=== PATIENT | female | born 1960 | race Caucasian/White ===

== ENCOUNTER 2023-09-28 09:56 | Day surgery (SDC) | payer BC, SELFPAY ==
[2023-09-28] VITALS (15 sets, daily range): BP systolic 106–139; BP diastolic 68–111; PULSE 67–81; RESP 14–20; TEMP 36–36.8; O2SAT 91–99; BMI 35.4
--- OUTSIDE RECORDS SUMMARY | 2023-09-28 10:02 | XMS_ITS | Clinical Summary ---
Author Organization [facility] Address [place], [place] [address] Care Team Providers Care Auto Research Engineer Name Role Phone Lin Morel MD Primary Care Provider [phone] Radha Huerta SAMPLE TAKER OPERATOR Unavailable [phone] Allergies Active Allergy Reactions Criticality Noted Date Comments Amoxicillin-Pot Clavulanate Diarrhea 10/31/19 17 July 2022. Medications Medication Sig Dispensed Refills Start Date End Date Status valACYclovir (VALTREX) 500 mg tabletIndications:G enital herpes simplex, unspecified site TAKE 1 TABLET BY MOUTH EVERY DAY FOR PREVENTION AND 1 TABLET TWICE DAILY FOR 5 DAYS FOR OUTBREAKS 90 Tablet 3 03/20/20 23 Active SUMAtriptan (IMITREX) 6 mg/0.5 mL SUBCUTANEOUS penIndications:Flight Engineer Performance Qualified aishwarya migraine without aura without status migrainosus, not intractable Inject 0.5 mL (6 mg) subcutaneous 2 times daily if needed for Migraine. Give at minimum 2hrs apart. Max Dose: 12mg per 24hrs. 6 mL 05/07/19 24 Active SUMAtriptan (IMITREX) 100 mg tabletIndications:C hronic migraine without aura without status migrainosus, not intractable Take 1 Tablet (100 mg) by mouth 2 times daily if needed for Migraine. Give at minimum 2hrs apart. Max Dose: 200mg per 24hrs. 9 Tablet 05/07/19 24 Active ketoconazole 2% topical (NIZORAL) creamIndications:Ti rosa pedis of both feet Apply topically to affected area(s) two times daily. 60 g 06/12/19 24 Active oxyCODONE (ROXICODONE) 5 mg immediate release tabletIndications:P ain of midfoot, right Take 1 Tablet (5 mg) by mouth 2 times daily if needed for Pain. 15 Tablet 06/18/19 24 Active pantoprazole (PROTONIX) 40 mg delayed-release tabletIndications:G astroesophageal reflux disease without esophagitis TAKE 1 TABLET(40 MG) BY MOUTH EVERY DAY BEFORE A MEAL 90 Tablet 2 06/20/19 24 Active betamethasone, augmented dipropianate 0.05% (DIPROLENE AF) 0.05 % cream APPLY TO BILATERAL FOREARMS TWICE DAILY FOR 2-3 WEEKS THEN NEEDED 07/20/19 24 Active triamcinolone (ARISTOCORT; KENALOG) 0.1 % creamIndications:De rmatitis Apply topically to affected area(s) two times daily. To rash around buttocks. 80 g 1 08/04/19 24 Active tacrolimus 0.1% (PROTOPIC) 0.1 % ointment 08/03/19 24 Active venlafaxine (EFFEXOR XR) 75 mg cp24 Extended-Release capsuleIndications: Generalized anxiety disorder Take 1 Capsule (75 mg) by mouth once daily with a meal. 90 Capsule 1 09/15/19 24 Active venlafaxine (EFFEXOR XR) 150 mg Extended-Release capsuleIndications: Generalized anxiety disorder Take 1 Capsule (150 mg) by mouth once daily with a meal. Take with 75 mg capsule for total dose 225 mg daily. 90 Capsule 1 09/15/19 24 Active meloxicam 15 mg tabletIndications:P ain of midfoot, right Take 1 Tablet (15 mg) by mouth once daily. 90 Tablet 1 09/22/19 24 Active tiZANidine (ZANAFLEX) 2 mg tabletIndications:T ension headache TAKE 1 TABLET(2 MG) BY MOUTH AT BEDTIME 90 Tablet 09/24/19 24 Active fluticasone (50 mcg per actuation) nasal solution (FLONASE)Indication s:Allergic rhinitis, unspecified seasonality, unspecified trigger SHAKE LIQUID AND USE 2 SPRAYS IN EACH NOSTRIL EVERY DAY 48 g 3 09/25/19 24 Active albuterol HFA (PRO-AIR; VENTOLIN; PROVENTIL) 90 mcg/actuation inhalerIndications: SOB (shortness of breath) Inhale 1-2 Puffs by mouth every 4 hours if needed for Shortness of Breath 1st choice. 1 Each 3 03/01/20 22 024 Discontinued(*P atient states no longer taking) fluticasone (50 mcg per actuation) nasal solution (FLONASE)Indication s:Allergic rhinitis, unspecified seasonality, unspecified trigger Inhale 2 Sprays to both nostrils once daily. 48 g 3 09/25/19 23 024 Discontinued albuterol (PROVENTIL) 0.083 % neb solutionIndications :Bronchitis Inhale 3 mL (2.5 mg) via a nebulizer every 6 hours if needed for Wheezing or Cough. 90 mL 03/07/20 23 024 Discontinued(*P atient states no longer taking) venlafaxine (EFFEXOR XR) 75 mg cp24 Extended-Release capsuleIndications: Generalized anxiety disorder Take 1 Capsule (75 mg) by mouth once daily with a meal. 90 Capsule 1 03/24/20 23 024 Discontinued(Re order (E-cancel not sent)) fluticasone furoate-vilanteroL (BREO ELLIPTA) 100-25 mcg/dose inhalerIndications: Mild intermittent asthma without complication Inhale 1 Puff by mouth once daily. 60 Each 11 05/11/19 24 024 Discontinued(*P atient states no longer taking) venlafaxine (EFFEXOR XR) 150 mg Extended-Release capsuleIndications: SMITA (generalized anxiety disorder),Post-conc ussion headache TAKE 1 CAPSULE(150 MG) BY MOUTH EVERY DAY WITH THE EVENING MEAL 90 Capsule 05/19/19 24 024 Discontinued tiZANidine (ZANAFLEX) 2 mg tabletIndications:T ension headache Take 1 Tablet (2 mg) by mouth at bedtime. 90 Tablet 06/05/19 24 024 Discontinued durable medical equipment (DME)Indications:Ch ronic pain of left thumb,Degenerative arthritis of thumb, left,Arthritis of carpometacarpal (CMC) joint of left thumb CMC joint brace, Comfort Cool thumb, left, medium 06/12/19 24 024 Discontinued(*M ed complete/Regime n complete/Level of care change) meloxicam 15 mg tabletIndications:P ain of midfoot, right Take 1 Tablet (15 mg) by mouth once daily. 30 Tablet 08/20/19 24 024 Discontinued(Re order (E-cancel not sent)) venlafaxine (EFFEXOR XR) 150 mg Extended-Release capsuleIndications: SMITA (generalized anxiety disorder),Post-conc ussion headache TAKE 1 CAPSULE(150 MG) BY MOUTH EVERY DAY WITH THE EVENING MEAL 30 Capsule 08/31/19 24 024 Discontinued(Re order (E-cancel not sent)) Active Problems Problem Noted Date Diagnosed Date Post-concussion headache 08/23/2021 Depression, major 12/21/2012 Back pain 02/10/2008 Genital herpes, unspecified 12/18/2006 Post-traumatic osteoarthritis of knee 12/18/2006 Allergic rhinitis, cause unspecified 05/26/2006 Migraine Resolved Problems Problem Noted Date Diagnosed Date Resolved Date Pap smear for cervical cancer screening 08/25/2022 10/30/2022 Overview: 08/2022 NIL/HPV negative Plan: Pap/HPV due in 5 years Vitamin D deficiency 12/06/2012 017 Encounter for screening colonoscopy 10/21/2021 Encounters Date Type Department Care Team Description 09/28/[address] [phone] Shayna Wadsworth MD Refill Request (Tizanidine) 09/26/2023 Travel 09/24/[address] [phone] Lin Morel MD Refill Request (Fluticasone (50 Mcg Per Actuation) Nasal) 09/23/[address] [address] Shayna Wadsworth MD Refill Request (Tizanidine) 09/23/[address] [phone] Lin Morel MD Medication Management 09/20/[address] [place] [address] Lin Morel MD Refill Request (meloxicam 15 mg tablet) 09/18/[address] [place] [address] Lin Morel MD Medication Management (Questions Regarding Medications Before 09/28 Surgery) 09/18/[address] [place] [address] Lin Morel MD Follow Up 09/17/[address] [place] [address] Lin Morel MD Medication Management 09/15/2023 Orders Only [address] [place] [address] Lin Morel MD 1 scan: (1-Ord) 09/14/2023 09/15/2023 Telephone [facility] [address] [place] [address] Omid Barbosa DPM Questions 09/14/2023 3:40 PM CDT Preop Visit [address] [place] [address] Lin Morel MD Preoperative Exam (Right foot torn tendon, 09/28/23. Dr. Barbosa) 09/14/[address] [place] [address] Lin Morel MD Questions (regarding after care summary) 09/14/2023 Travel 08/31/[address] [place] [address] Shayna Wadsworth MD Refill Request (Tizanidine) 08/30/[address] [address] Lin Morel MD Refill Request (Venlafaxine) 08/19/2023 3:30 PM CDT Office Visit [facility] [address] [place] [address] Omid Barbosa DPDeclan Follow Up (Left foot) 08/19/2023 Travel 08/19/[address] [phone] Moi Scott MD Refill Request (Meloxicam 15mg) 08/19/[address] [address] Lin Morel MD Questions 08/12/[address] [address] Lin Morel MD Referral (Insurance Referral) 08/12/[address] [address] Lin Morel MD Error-please disregard 08/11/2023 Orders Only [facility] [place] [address] [place] [phone] Gerald Paris MD <No scans attached> 08/05/2023 2:30 PM CDT Office Visit [facility] [address] [place] [address] Omid Barbosa DPM Follow Up (MRI review and final surgical discussion, DOS 09/28/23) 08/05/2023 9:30 AM CDT [facility] [address] [place] [address] Gerald Paris MD Finger Pain/problem (Left thumb pain) 08/05/2023 Telephone [facility] [address] [address] [place] [address] Gerald Paris MD Questions (CALL BACK ) 08/05/[address] [address] Lin Morel MD Health Maintenance Update (UPDATE) 08/05/2023 Travel 08/04/[address] [address] Lin Morel MD Medication Management (: triamcinolone (ARISTOCORT; KENALOG) 0.1 % cream) 08/01/[address] [address] Lin Morel MD Refill Request (triamcinolone (ARISTOCORT; KENALOG) 0.1 % cream) 07/31/[address] [address] Lin Morel MD Refill Request (Triamcinolone) 07/23/2023 9:10 AM CDT Office Visit [address] [phone] Moi Scott MD Concerns (Left foot is tingly. Sx started about a month ago. ) 07/23/2023 Telephone [facility] [address] [place] [address] Omid Barbosa DPM surgery question (How soon may I return to work) 07/23/2023 Travel 07/23/[address] [address] Lorin Huerta PA Refill Request (Meloxicam) 07/20/2023 7:15 AM CDT Ancillary Procedure [facility] [address] [place] [address] 07/20/2023 Telephone [facility] [address] [place] [address] Omid Barbosa DPM Questions (MRI Results, surgery?) 07/20/2023 Travel 07/17/2023 8:30 AM CDT Office Visit [facility] [place] [address] [phone] Mohsen Joseph PA Hand Pain/problem (f/u left thumb) 07/17/2023 Travel 07/07/2023 4:00 PM CDT Office Visit [facility] [address] [address] [place] [address] Silva Velasco MD Concerns (diet for arthritis ) 07/07/2023 2:45 PM CDT Office Visit [facility] [address] [place] [address] Omid Barbosa DPM Consult (Right foot pain) 07/07/2023 Travel 06/28/2023 Telephone [facility] [address] [place] [address] Lin Morel MD Questions from Last 3 Months Immunizations Name Administration Dates Next Due COVID-19 vaccine (Moderna 100mcg/0.5mL) PF, MDV 10/31/2021,03/06/2021,07/26/2020,2020 Hepatitis B (Adult) 04/28/2000,06/27/1999,1999 Influenza Virus, Unspecified 02/03/2017 Influenza, IIV3 (Age >=3 years) 01/25/2017,02/18 Influenza, IIV4 01/08/2021,01/17/2020,02/03/2013 Influenza, IIV4 (=>6mos) MDV 02/03/2019 Influenza, Injectable, Mdck, Quadrivalent, W/preservative 01/27/2023,01/21/2022 Influenza,LAIV4 Live Intrana yossi (Flumist) 02/21/2014 Td (Age >=7 Years) 08/01/2004 Tdap 09/19/2016 Zoster (Shingrix-RZV, recombinant) 10/21/2021, Family History Medical History Relation Name Comments Hypertension Father Cancer-breast Maternal Aunt GI Disease Mother cholecystectomy Hypertension Mother Mastocytosis Mother DVT. Factor V L eiden/Systemic Mastocytosis Cancer-breast Sister 1 Lin Mancilla Cancer-breast Sister 2 Lesvia Relation Name Status Comments Brother Alive x2 Daughter Alive x1 Father Alive Maternal Aunt Maternal Grandfather Maternal Grandmother Mother Alive Paternal Grandfather Paternal Grandmother Sister 1 Lin Mancilla Alive x3 Sister 2 Lesvia Alive Social History Tobacco Use Types Packs/Day Years Used Date Smoking Tobacco: Never Smokeless Tobacco: Never Tobacco Cessation:Counseling Given: Yes Comments:never Alcohol Use Standard Drinks/Week Comments Not Currently 0 (1 standard drink = 0.6 oz pur e alcohol) rare PHQ-2 Answer Date Recorded PHQ-2 TOTAL SCORE 4 09/24/2022 Social Connections Answer Date Recorded Frequency of Communication with Friends and Fami ly Not on file 07/31/2023 Financial Resource Strain Answer Date R ecorded Difficulty of Paying Living Expenses 1 07/29/2022 Difficulty of Paying Living Expenses 2 07/29/2022 Food Insecurity Answer Date Recorded Worried About Running Out of Food in the Last Ye ar 1 07/29/2022 Transportation Needs Answer Date Record ed Lack of Transportation (Medical) 1 07/29/2022 Housing Stability Answer Date Recorded Unable to Pay for Housing in the Last Year 1 07/29/2022 Sex and Gender Information Value Date Recorded Sex Assigned at Not on file Gender Identity Not on file Sexual Orientation Not on file Obstetrics History Para Term AB IAB SAB Ectopic Multiple Livin g Live Births 2 1 1 1 1 1 1 Date Outcome GA Total Labor Labor/2nd/3rd Weight Sex Delivery Anes PTL Beverley A1 A5 Name Cl in Term Vag-Spont Helene ng IAB Feta l Brandi se Last Filed Vital Signs Vital Sign Reading Time Taken Comments Blood Pressure 134/80 09/14/2023 3:02 PM CDT Pulse 83 09/14/2023 3:02 PM CDT Temperature 36.9 ??C (98.5 ??F) 06/07/2023 3:12 PM CS T Respiratory Rate 20 06/07/2023 3:12 PM HOSTING ENGINEER Oxygen Saturation 94% 09/14/2023 3:02 PM CDT Inhaled Oxygen Concentration - - Weight 90.3 kg (199 lb) 09/14/2023 3:02 PM CDT Height 160 cm (5' 3) 07/07/2023 4:10 PM CDT Body Mass Index 35.25 07/07/2023 4:10 PM CDT Plan of Treatment Upcoming Encounters Date Type Department Care Team (Late st Contact Info) Description 09/28/2023 11:30 AM CDT Office Visit [facility] [address] [place] [address] Omid Barbosa DPM [address] [place] [address] Arrived 09/30/2023 10:30 AM CDT Office Visit [facility] [address] [place] [address] Omid Barbosa DPM [address] [place] [address] 10/05/2023 1:00 PM CDT Telemedicine [facility] [address] [place] [address] [address] [place] [address] 10/14/2023 10:30 AM CDT Office Visit [facility] [address] [place] [address] Omid Barbosa DPM [address] [place] [address] 10/19/2023 7:50 AM CDT Preop Visit [facility] [address] [place] [address] Lin Morel MD [address] [place] [address] 11/11/2023 10:30 AM CDT Office Visit [facility] [address] [place] [address] Omid Barbosa DPM [address] [facility] [address] 11/16/2023 Hospital Encounter Gerald Paris MD [address] [facility] [address] [place] [address] 11/16/2023 7:30 AM CDT Ancillary Procedure [facility] [address] [facility] [address] [place] [phone] 11/26/2023 9:30 AM CDT Office Visit [facility] [address] [facility] [address] [place] [phone] Leanna Garcia PA [address] [facility] [address] [place], [place] [phone] Scheduled Procedures Name Priority Associated Diagnoses Date/Ti me SURGICAL PROCEDURE (TYPE PROCEDURE DESCRIPTION BELOW) Arthritis of carpometacarpal (CMC) joint of left thumb Health Maintenance Due Date Last Done Comments Pneumococcal series for age 6-64 (1 of 2 - PCV) 1966 COVID-19 vaccine series (2022- season) 2022 10/31/2021, 03/06/2021, 07/26/2020, Additional history exists Depression screening for age 12+ 09/25/2023 09/24/2022, 10/23/2021, 10/22/2021, Additional history exists Mammogram for age 45-75 10/09/2023 10/09/19 23, 10/31/2021, 10/08/2020, Additional history exists Influenza for age 50-64 12/27/2023 01/28/20 23, 01/21/2022, 01/08/2021, Additional history exists BMI (ht and wt on same day) for age 18+ 07/06/2024 07/07/2023, 06/05/2023, 09/24/2022, Additional history exists Lipids for age 45-75 10/05/2025 10/05/2020, 11/14/2019, 11/01/2018, Additional history exists Tetanus booster 09/19/2026 09/19/2016, 08/01/2004 Pap test for age 21-65 09/25/2027 , 09/24/2022, 11/14/2019, Additional history exists Colonoscopy through age 75 10/02/203110/01, 11/07/2011, 11/07/2011 Tdap Completed 09/19/2016 Hepatitis C screening for ag e 18-79 Completed 11/14/2019 Zoster (shingles) series for age 50+ Completed 10/21/2021, 11/14/2019 HIV for age 15-65 Completed 06/05/2023 Procedures Procedure Name Priority Date/Time Associated Diagnosis Comments EKG 12 LEAD Routine 09/14/2023 12:00 AM CDT Pre-op evaluation MR ANKLE RIGHT WO Routine 07/20/2023 7:3 0 AM CDT Peroneal tendonitis, right ANTI HIV 1/2 Routine 06/05/2023 10:27 AM HOSTING ENGINEER Screening for HIV (human immunodeficiency virus) XR MAMMO EDEN BILAT SCREEN Routine 10/08/2022 8:40 AM CDT Visit for screening mammogram HPV THIN PREP Routine 09/24/2022 3:20 PM CDT Screening for malignant neoplasm of cervix COLONOSCOPY 10/01/2021 8:06 AM CDT LIPID PANEL W REFLEX MEASURED LDL Routine 10/05/2020 8:03 AM CDT Lipid screening ANTI HCV Routine 11/14/2019 4:19 PM CDT Need for hepatitis C screening test from Last 3 Months or Most Recently Relevant to Health Maintenance Results * EKG 12 LEAD (09/14/2023 12:00 AM CDT) Lin Morel MD EKG ORD * MR ANKLE RIGHT WO (07/20/2023 7:30 AM CDT) Anatomical Region Laterality Modality ANKLE R Magnetic Resonan ce 07/20/2023 12:3 8 PM CDT Impressions 07/20/2023 12:38 PM CDT 1. Moderate to advanced tendinopathy with partial-thickness tear of the peroneus longus tendon. The peroneus brevis tendon is intact. 2. 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 3. Mild degenerative changes in the midfoot. 4. Mild lateral subcutaneous edema. Dictated by Aubrey Sánchez MD @ 07/20/2023 12:38:32 PM (Electronically Signed) Narrative 07/20/2023 12:38 PM CDT For Patients: ??As a result of the Century Cures Act, medical imaging exams and procedure reports are released immediately into your electronic medical record. ??You may view this report before your referring provider. ??If you have questions, please contact your health care provider. EXAM: MRI OF THE RIGHT ANKLE, WITHOUT CONTRAST CLINICAL INDICATION: Peroneal tendinitis. Evaluate for peroneal tendon tear. COMPARISON PLAIN FILMS: 06/07/2023. COMPARISON CROSS-SECTIONAL IMAGING STUDIES: None. TECHNICAL: Axial, sagittal and coronal T1, PD, PD FS and STIR images. ?? FINDINGS: OSSEOUS STRUCTURES: No fracture, bone marrow contusion, stress change or marrow replacement process. JOINT SPACES: Moderate to full-thickness chondromalacia in the medial talar dome without adjacent subchondral cystic change. No ankle joint effusion synovitis. The subtalar joints are maintained. Mild degenerative changes in the talonavicular joint. Mild degenerative changes in the navicular cuneiform and TMT joints. LIGAMENTS: Syndesmotic Ligaments: The anterior and posterior syndesmotic ligaments are intact. Lateral Ligaments: Thinning of the anterior talofibular ligament consistent with chronic partial-thickness tear. The calcaneofibular ligament is intact. The posterior talofibular ligament is intact. Medial Ligaments: The superficial and deep components of the deltoid ligament complex are maintained. Spring Ligaments: The calcaneonavicular spring ligament complex is intact. TENDONS: Flexor Tendons: The posterior tibial, flexor digitorum longus and flexor hallucis longus tendons are intact. Extensor Tendons: The anterior extensor tendons are intact. Achilles Tendon: The Achilles tendon is intact without tendinosis, tear or peritendinitis changes. Peroneal Tendons: Thickening and low-level increased signal of the peroneus longus tendon consistent with moderate to advanced tendinopathy. Diffuse thinning of the peroneus longus tendon at and just distal to the retromalleolar groove consistent with partial-thickness tearing. In addition there is a partial-thickness longitudinal split tear proximal and distal to the area tendon thinning. The peroneus brevis tendon is intact. No tenosynovitis. No subluxation of the peroneal tendons. TARSAL TUNNEL: The soft tissues of the tarsal tunnel are normal without mass or fluid collection. ??No abnormality along the course of the medial or lateral plantar nerves. SINUS TARSI: The structures of the sinus tarsi appear normal. ??No disruption of the interosseous ligaments or significant effacement of fat. PLANTAR SOFT TISSUES: The plantar fascia is intact. ??There is no significant plantar calcaneal spur. ??No atrophy or edema of the abductor digiti minimi muscle belly. SOFT TISSUES: Mild lateral subcutaneous edema. Procedure Note Aubrey Sánchez MD - 07/20/2023 For Patients: As a result of the 21st Century Cures Act, medical imagingexams and procedure reports are released immediately into your electronicmedical record. You may view this report before your referring provider.If you have questions, please contact your health care provider. EXAM: MRI OF THE RIGHT ANKLE, WITHOUT CONTRAST CLINICAL INDICATION: Peroneal tendinitis. Evaluate for peroneal tendon tear. COMPARISON PLAIN FILMS: 06/07/2023. COMPARISON CROSS-SECTIONAL IMAGING STUDIES: None. TECHNICAL: Axial, sagittal and coronal T1, PD, PD FS and STIR images. FINDINGS: OSSEOUS STRUCTURES: No fracture, bone marrow contusion, stress change or marrow replacementprocess. JOINT SPACES: Moderate to full-thickness chondromalacia in the medialtalar dome without adjacent subchondral cystic change. No ankle jointeffusion synovitis. The subtalar joints are maintained. Mild degenerativechanges in the talonavicular joint. Mild degenerative changes in thenavicular cuneiform and TMT joints. LIGAMENTS: Syndesmotic Ligaments: The anterior and posterior syndesmotic ligamentsare intact. Lateral Ligaments: Thinning of the anterior talofibular ligamentconsistent with chronic partial-thickness tear. The calcaneofibularligament is intact. The posterior talofibular ligament is intact. Medial Ligaments: The superficial and deep components of the deltoidligament complex are maintained. Spring Ligaments: The calcaneonavicular spring ligament complex is intact. TENDONS: Flexor Tendons: The posterior tibial, flexor digitorum longus and flexorhallucis longus tendons are intact. Extensor Tendons: The anterior extensor tendons are intact. Achilles Tendon: The Achilles tendon is intact without tendinosis, tear orperitendinitis changes. Peroneal Tendons: Thickening and low-level increased signal of theperoneus longus tendon consistent with moderate to advanced tendinopathy.Diffuse thinning of the peroneus longus tendon at and just distal to theretromalleolar groove consistent with partial-thickness tearing. Inaddition there is a partial-thickness longitudinal split tear proximal anddistal to the area tendon thinning. The peroneus brevis tendon is intact.No tenosynovitis. No subluxation of the peroneal tendons. TARSAL TUNNEL: The soft tissues of the tarsal tunnel are normal without mass or fluidcollection. No abnormality along the course of the medial or lateralplantar nerves. SINUS TARSI: The structures of the sinus tarsi appear normal. No disruption of theinterosseous ligaments or significant effacement of fat. PLANTAR SOFT TISSUES: The plantar fascia is intact. There is no significant plantar calcanealspur. No atrophy or edema of the abductor digiti minimi muscle belly. SOFT TISSUES: Mild lateral subcutaneous edema. IMPRESSION: 1. Moderate to advanced tendinopathy with partial-thickness tear of theperoneus longus tendon. The peroneus brevis tendon is intact. 2. 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 3. Mild degenerative changes in the midfoot. 4. Mild lateral subcutaneous edema. Dictated by Aubrey Sánchez MD @ 07/20/2023 12:38:32 PM (Electronically Signed) Omid Barbosa DPDeclan MR * ANTI HIV 1/2 (06/05/2023 10:27 AM HOSTING ENGINEER) HIV-1/HIV-2 SCREEN Non-Reacti ve Non-Reacti ve 06/05/2023 9:31 PM HOSTING ENGINEER [facility] Comment:HIV-1 p24 and HIV-1/ HIV-2 Ab Not Detected. Blood BLOOD SPECIMEN / Unknown Venipuncture / Unknown 06/05/2023 10:27 AM HOSTING ENGINEER 06/05/2023 10:29 AM HOSTING ENGINEER Shayna Wadsworth MD SEND OUTS [facility] [address] [place] [address], [place] * XR MAMMO EDEN BILAT SCREEN (10/08/2022 8:40 AM CDT) Anatomical Region Laterality Modality BREASTS, Breast Left, Breast Right Bilateral Mammography Impressions 10/08/2022 2:10 PM CDT ??There is no radiographic evidence for malignancy. ??Recommend annual mammograms. MAMMOGRAM ASSESSMENT: ??ACR 2 Benign PATIENTS: You will also receive a letter with your examination results in an easy to read format. ??If you have questions about your results, please contact your referring provider. Narrative 10/08/2022 2:10 PM CDT For Patients: As a result of the 21st Century Cures Act, medical imaging exams and procedure reports are released immediately into your electronic medical record. You may view this report before your referring provider. If you have questions, please contact your health care provider. XR MAMMO EDEN BILAT SCREEN [[id number]] CLINICAL HISTORY: ??This is an asymptomatic 62 y.o. patient. INDICATION FOR EXAM: Mammogram Screening. TECHNIQUE: CC & MLO views were obtained. ??This study was evaluated with the assistance of Computer-Aided Detection. Breast Tomosynthesis was used in interpretation. COMPARISON FILMS: Yes 10/31/21 [facility] ?? FINDINGS: ??The breasts have scattered areas of fibroglandular density. ??No suspicious masses or microcalcifications. ??Post biopsy changes of right breast. Lin Morel MD MAMMO * HPV HIGH RISK (09/24/2022 3:20 PM CDT) TYPE 16 Negative Negative 09/29/2022 5:06 PM CDT [facility] TYPE 18 Negative Negative 09/29/2022 5:06 PM CDT [facility] OTHER HIGH RISK TYPES Negative Negative 09/29/2022 5:06 PM CDT [facility] Other (Cervical) Non-Blood / Unknown 09/24/2022 3:20 PM CDT 09/25/2022 3:47 PM CDT Narrative [facility] - 09/29/2022 5:06 PM CDT HPV types 16, 18, 31, 33, 35, 39, 45, 51, 52, 56, 58, 59, 66 and 68 DNA were undetectable or below the pre-set threshold. Methodology: Debi Corry 4800 HPV Test Lin Morel MD MICROBIOLOGY [facility] [address] [place] [address], * COLONOSCOPY (10/01/2021 8:06 AM CDT) 10/01/2021 8:06 AM CDT Narrative Transcriptions Jame Villanueva DO - 10/01/2021 8:51 AM CDT Patient Name: Philly Lou Procedure Date: 10/01/2021 Gender: Female Date of : 1960 Admit Type: Ambulatory Procedure: Colonoscopy Proceduralist: Jame Villanueva MD [facility] Referring MD: Lin Morel MD Indications/Pre-Op Diagnosis: Screening for colorectal malignant neoplasm, Last colonoscopy 10 years ago Medications: Propofol per Anesthesia Procedure Description: The patient had risks, benefits and alternatives explained to andgave informed consent. The patient had a stable cardiopulmonary status and judged an adequate candidate for conscious sedation. The colonoscope was passed through the anus and advanced to thececum, identified by appendiceal orifice and ileocecal valve. Thecolonoscopy was performed without difficulty. The patient tolerated the procedure well. The quality of the bowel preparation was good. The ileocecal valve, appendiceal orifice, and rectum were photographed. Complications: No immediate complications. Estimated Blood Loss & Specimen: Estimated blood loss: none. Specimen collected - None Findings: Non-bleeding internal hemorrhoids were found during retroflexion. The hemorrhoids were Grade II (internal hemorrhoids that prolapse butreduce spontaneously). Impressions/Post-Op Diagnosis: - Non-bleeding internal hemorrhoids. - No specimens collected. Recommendation: - Discharge patient to home. - Patient has a contact number available for emergencies. The signsand symptoms of potential delayed complications were discussed with the patient. Return to normal activities tomorrow. Written discharge instructions were provided to the patient. - High fiber diet. - Continue present medications. - Repeat colonoscopy in 10 years for screening purposes. Jame Villanueva MD 10/01/2021 8:51:19 AM This report has been signed electronically. Note Initiated On: 10/01/2021 8:06 AM Jame Villanueva DO PROCEDURE ORD * LIPID PANEL W REFLEX MEASURED LDL (10/05/2020 8:03 AM CDT) CHOLESTEROL,TOTAL 194 100 - 199 mg/dL 10/05/2020 9:13 AM CDT [facility] TRIGLYCERIDES 51 <150 mg/dL 10/05/2020 9:13 AM CDT [facility] HDL CHOLESTEROL 55 >40 mg/dL 9:13 AM CDT [facility] NON-HDL CHOLESTEROL 139 <145 mg/dl 10/05/2020 9:13 AM CDT [facility] CHOL/HDL RATIO 3.53 <4.50 10/05/2020 9:13 AM CDT [facility] LDL CHOLESTEROL 129 <=130 mg/dL 10/05/2020 9:13 AM CDT [facility] VLDL CHOLESTEROL 10 mg/dL 10/06/19 9:13 AM CDT [facility] PROVIDER ORDERED STATUS RANDOM 10/05/2020 9:13 AM CDT [facility] Blood BLOOD SPECIMEN / Unknown Venipuncture / Unknown 10/05/2020 8:03 AM CDT 10/05/2020 8:04 AM CDT Lin Morel MD CHEMISTRY [facility] [address] [place] [address] * ANTI HCV (11/14/2019 4:19 PM CDT) HEPATITIS C ANTIBODY Non-React clyde Non-React clyde 11/14/2019 10:03 PM CDT [facility] Comment:Antibodies to HCV no t detected; does not exclude the possibility of exposure to HCV. Blood BLOOD SPECIMEN / Unknown Venipuncture / Unknown 11/14/2019 4:19 PM CDT 11/14/2019 4:21 PM CDT Lin Morel MD SEND OUTS [facility] [address] [place] [address], from Last 3 Months or Most Recently Relevant to Health Maintenance Advance Directives * Full Code (Latest Code Status on File) Date Activated Date Inactivated Comments 10/01/2021 7:43 AM 10/01/2021 12:07 PM Question Answer Comments Code Status Discussion: Discussed Care Teams Auto Research Engineer Relationship Specialty Start Date End Date Lin Morel MD [address] [place] [address] PCP - General Internal Medicine 08/16/16 Radha Huerta, SAMPLE TAKER OPERATOR [address] [place], [place] [address] [address] Pasting Machine Offbearer 08/15/22
[2023-09-28] MEDS: LACTATED RINGERS 1000 ML 1,000 ML 100 ML IV (10:15)
--- NOTE | 2023-09-28 11:24 | SUR.PREOP ---
TIME?OUT:?1128 PT/RN/MDA?VERIFICATION?OF?SURGICAL?SITE,?PROCEDURE,?AND?CONSENT OBTAINED?PRIOR?TO?INVASIVE?PROCEDURE.
[2023-09-28] MEDS: MIDAZOLAM HCL 1 MG/ML inj IVP (11:28)
[2023-09-28] MEDS: fentaNYL 100 MCG/2 ML inj IVP (11:28)
[2023-09-28] MEDS: CEFAZOLIN 2 GM INJ IVP (11:50)
--- NOTE | 2023-09-28 12:37 | P.NB_ITS ---
Nerve Block Nerve Block Time Seen by Provider: 11:30 Date Seen: 09/28/23 Type of block requested by surgeon for post-operative analgesia: popliteal Side: right Time out performed: Yes Verification of patient name: Yes Verification of date of : Yes Site marking: site marked Name of person performing procedure: Luis Continuous monitoring Was continuous monitoring of O2 sat, B/P, property assessment monitor, recorded every 15 minutes?: Yes Procedure Checklist: sterile prep, needles and gloves Ultrasound guided. Images saved: Yes Medications given in 5ml increments after negative aspiration: Marcaine %: 0.5 mL: 25 Needle gauge: 22 Patient tolerated procedure well: Yes Additional comments: Needle noted adjacent to nerve Block Charges Block Charge (with Pro Fee): Sciatic Nerve Use of Ultrasound Machine for Block: Yes- US Guidance/pain block
--- NOTE | 2023-09-28 12:38 | W.ANESCHARGE ---
Anesthesia Charges Start Date/Time Anesthesia Start Date: 09/28/23 Anesthesia Start Time: 11:34 Stop Date/Time Anesthesia Stop Date: 09/28/23 Anesthesia Stop Time: 13:27
[2023-09-28] MEDS: BUPIVACAINE 0.25% 30 ML INJECTION (12:57)
--- NOTE | 2023-09-28 13:22 | W.PODPROC_ITS ---
Date of Procedure: 09/28/23 Surgeon: Omid Barbosa DPM Pre-op Diagnosis: Peroneal tendon tear right Post-op Diagnosis: Peroneal tendon tear right Type of Procedure: Repair of peroneal tendon tear with anastomosis right Indications: Patient sustained a significant peroneus longus tendon tear. She has not seen improvement with conservative care. She was is to proceed with surgical intervention. I reviewed the procedure, recurrence expectation potential complications. These include but are not limited to: Poor wound healing, infection, continued pain, potential need for future surgery, deep venous thrombosis, pulmonary embolism, complex regional pain syndrome, and possible . She understands risks written consent was obtained. Site was marked. Procedure Description: Patient had a preoperative popliteal block by Anesthesia. She was brought in the operating room and placed supine position on operating table. She was placed under general anesthesia. She was then positioned into a floppy lateral with trevizo bag. All sites appropriately padded. She was prepped and draped in sterile fashion. Standard time-out protocol followed. Right limb was exsanguinated the tourniquet inflated to 300 mm Hg. Linear incision was then made over the lateral ankle proximal to the lateral malleolus at the level of the peroneal tendons. Incision was carried down through skin subcutaneous tissues. Great care taken to retract neurovascular structures. Peroneal tendon sheath was identified proximal to the lateral malleolus and incised. The peroneal tendon sheath was then opened coursing distally to the peroneal tubercle. At this level the peroneus brevis tendon became normal in appearance while the peroneus longus tendon had severe rupture. Longus tendon at this level was not viable or repairable. There was also a very low lying muscle be lly of the peroneus brevis tendon. This low-lying muscle belly was excised. Proximal aspect cauterized. There were longitudinal tears of the brevis tendon. Peroneus longus tendon was debrided as it was significantly enlarged. A side to side anastomosis the longus and brevis was then performed starting proximal to the lateral malleolus. 2-0 FiberWire was run along the anterior aspect of tendons. Second 2-0 FiberWire was then run along the posterior aspect of the 2 tendons anastomosing them together. The distal portion of the peroneus longus tendon was then excised. Wound was irrigated with normal sterile saline. Peroneal tendon sheath and retinaculum were repaired with 3-0 Vicryl. Subcutaneous tissues reapproximated 4-0 Monocryl and skin closed with 4-0 Prolene. 15 mL of 0.25% bupivacaine plain injected along the incision. Sterile dressing was applied. Tourniquet was released. Normal capillary fill time returned all digits. She was placed in a well-padded [id number] fiberglass cast. She was transferred from OR to PACU vital signs stable vascular status intact. She will be discharged per Anesthesia. She was given both written and verbal postoperative instructions. She is given oxycodone for pain. She will start aspirin therapy tomorrow. She is nonweightbearing with crutches. She will follow up in clinic in 2 days. Anesthesia: GETA, regional and local Hemostasis: thigh Estimated blood loss (mL): 2 Implants: Arthrex 2-0 FiberWire x2 Specimens: none sent Disposition: PACU
--- NOTE | 2023-09-28 13:27 | W.ANESCHARGE ---
Anesthesia Charges Start Date/Time Anesthesia Start Date: 09/28/23 Anesthesia Start Time: 11:34 Stop Date/Time Anesthesia Stop Date: 09/28/23 Anesthesia Stop Time: 13:27
--- NOTE | 2023-09-28 13:49 | SUR.PHASEI ---
Patient meets anesthesia PACU discharge criteria.
[2023-09-28] MEDS: SODIUM CHLORIDE 0.9 % (FLUSH) 10 ML SYRINGE IVF (14:40)
--- NOTE | 2023-09-28 15:03 | SUR.PHASEII ---
Patient tolerated water, juice, and toast. Patient verbalized readiness to be discharged and understanding of discharge instructions. PT came to [facility] to supply crutches and provide crutch instructions.
--- NOTE | 2023-09-28 15:20 | REH.PT ---
Pt is s/p Repair of peroneal tendon tear with anastomosis right LE. NWB R LE. Pt was fitted for crutches and issued for home use. Instructed pt in gt level surfaces with 2 crutches, basic transfers and verbally instructed in stairs sequence and car transfers. Goals of PT were met. DC. No Charge.
== END 2023-09-28 15:17 | disposition home or self-care (01) ==
PROVIDERS: PCP Internal Medicine; Visit Provider Podiatrist
PROC: (CPT 27675; principal; 2023-09-28 11:00)
DX: S86.311A Strain of muscle(s) and tendon(s) of peroneal muscle group at lower leg level, right leg, initial encounter (principal); G89.18 Other acute postprocedural pain
CPT/HCPCS: 27658; 01462; 01470; 64445; 76942; A4580; J0665; J0690; J1100; J2250; J2371; J2405; J2704; J3010; J7120